=== PATIENT | male | born 1985 | race African-American/Black ===

== ENCOUNTER 2019-11-17 13:34 | Emergency (ER) | payer OTHER ==
[2019-11-17] MEDS ORDERED: NA CHLORIDE 0.9% 1,000 ML ONE (14:32)
[2019-11-17] MEDS ORDERED: ACETAMINOPHEN 500 MG TAB ONE ×2 (14:32→14:47)
--- OUTSIDE RECORDS SUMMARY | 2019-11-17 14:46 | XMS REPORT | Continuity of Care Document ---
:1985 Author Organization [facility] t Address [address] [place] [address] Care Team Providers Name Role Phone Unavailable Unavailable Unavailable Payers Payer Name Policy Type Policy Number Effective Date Expiration Date S ource Problems This patient has no known problems. Allergies, Adverse Reactions, Alerts Allergy Allergy Status Severity Reaction(s) Onset Inactive Treating Comm ents Source Name Type Date Date Clinician david CAIN Active [facility] ycin 10-19 [place] 00:00: d [facility] Medications This patient has no known medications. Procedures This patient has no known procedures. Results Test Description Test Time Test Comments Results Result Comments Source BASIC METABOLIC PANEL 2018-10-19 20:25:00 Test Item Value Reference Range Interpretation Comme nts SODIUM (test code = NA) 135 mmol/l 134.0-147.0 N POTASSIUM (test code = K) 3.7 mmol/L 3.6-5.2 N CHLORIDE (test code = CL) 100 mmol/l 98.0-107.0 N CARBON DIOXIDE (test code = CO2) 26.6 mmol/l 21.0-33.0 N ANION GAP (test code = GAP) 12.1 0-20 N GLUCOSE (test code = GLU) 89 mg/dl 70.0-110.0 N BLOOD UREA NITROGEN (test code = BUN) 11 mg/dl 7.0-18.0 N CREATININE (test code = CREAT) 1.05 mg/dL 0.60-1.30 N GFR NON BLACK (test code = GFRNONBLACK) 87 mL/min 105-110 L GFR BLACK (test code = GFRBLACK) 105 mL/min 127-133 L CALCIUM (test code = CA) 9.0 mg/dl 8.0-10.5 N THYROID STIMULATING [id number] 20:25:00 Test Item Value Reference Range Interpretation Comments THYROID STIMULATING 0.82 IU/ML 0.47-5.01 N Result i s in HORMONE (test code = Interna tional TSH) Units/millilite r B-TYPE NATRIURETIC [id number] 20:25:00 Test Item Value Reference Range Interpretation Comments B-TYPE NATRIURETIC PEPTIDE (test <5.0 PG/ML 5-100 L code = BNP) [id number] 20:25:00 Test Item Value Reference Range Interpretation Comments TROPONIN-I (test <0.02 NG/ML 0.00-0.06 N REFERENCE R RASHMI code = TROPI) TROPONIN I HEA LTHY INDIVIDUALS: < 0.06 ng/mL R/O ISCHE ISAURO: 0.07 - 0.60 ng/ mL CUT-OFF RANGE F OR AMI: 0.60 - 1.5 ng/m L BASIC METABOLIC [id number] 20:21:00 Test Item Value Reference Range Interpretation Comments SODIUM (test code = NA) 135 mmol/l 134.0-147.0 N POTASSIUM (test code = K) 3.7 mmol/L 3.6-5.2 N CHLORIDE (test code = CL) 100 mmol/l 98.0-107.0 N CARBON DIOXIDE (test code = CO2) 26.6 mmol/l 21.0-33.0 N ANION GAP (test code = GAP) 12.1 0-20 N GLUCOSE (test code = GLU) mg/dl 70.0-110.0 BLOOD UREA NITROGEN (test code = mg/dl 7.0-18.0 BUN) CREATININE (test code = CREAT) mg/dL 0.60-1.30 GFR NON BLACK (test code = mL/min 105-110 GFRNONBLACK) GFR BLACK (test code = GFRBLACK) mL/min 127-133 CALCIUM (test code = CA) mg/dl 8.0-10.5 THYROID STIMULATING [id number] 20:21:00 Test Item Value Reference Range Interpretation Comments THYROID STIMULATING HORMONE (test code IU/ML 0.47-5.01 = TSH) B-TYPE NATRIURETIC [id number] 20:21:00 Test Item Value Reference Range Interpretation Comments B-TYPE NATRIURETIC PEPTIDE (test <5.0 PG/ML 5-100 L code = BNP) [id number] 20:21:00 Test Item Value Reference Range Interpretation Comments TROPONIN-I (test code = TROPI) NG/ML 0.00-0.06 BASIC METABOLIC [id number] 20:07:00 Test Item Value Reference Range Interpretation Comments SODIUM (test code = NA) 135 mmol/l 134.0-147.0 N POTASSIUM (test code = K) 3.7 mmol/L 3.6-5.2 N CHLORIDE (test code = CL) 100 mmol/l 98.0-107.0 N CARBON DIOXIDE (test code = CO2) 26.6 mmol/l 21.0-33.0 N ANION GAP (test code = GAP) 12.1 0-20 N GLUCOSE (test code = GLU) mg/dl 70.0-110.0 BLOOD UREA NITROGEN (test code = mg/dl 7.0-18.0 BUN) CREATININE (test code = CREAT) mg/dL 0.60-1.30 GFR NON BLACK (test code = mL/min 105-110 GFRNONBLACK) GFR BLACK (test code = GFRBLACK) mL/min 127-133 CALCIUM (test code = CA) mg/dl 8.0-10.5 THYROID STIMULATING [id number] 20:07:00 Test Item Value Reference Range Interpretation Comments THYROID STIMULATING HORMONE (test code IU/ML 0.47-5.01 = TSH) B-TYPE NATRIURETIC [id number] 20:07:00 Test Item Value Reference Range Interpretation Comments B-TYPE NATRIURETIC PEPTIDE (test code PG/ML 5-100 = BNP) [id number] 20:07:00 Test Item Value Reference Range Interpretation Comments TROPONIN-I (test code = TROPI) NG/ML 0.00-0.06 PROTHROMBIN [id number] 20:07:00 Test Item Value Reference Range Interpretation Comments PROTHROMBIN TIME 11.3 SECONDS 9.9-12.8 N PATIENT (test code = PTP) INTERNATIONAL NORMAL 1.0 0.89-1.14 N THE INR IS TO BE USED RATIO (test code = ONLY FOR MONITORING INR) ORAL ANTICOAGULANTTH ERAPY. THE FOLLOWING A RE SUGGESTED RANGE S FROM [facility] LEGE OF CHEST PHYSICIANS:ANGELLA CATION INR VALUEPROPHYLAXI S OF VENOUS THROMBOS IS (ORTHOPEDIC RUMA BASIM) 2.0 - 3.0PROP HYLAXIS OF VENOUS THROM BOSIS (OTHER THAN HIG H-RISK SURGERY) 2.0 - 3.0TRE ATMENT OF DEEP VEIN THROMBOSIS OR PULMONARY EMBOL ISM 2.0 - 3.0PREV ENTION OF SYSTEMIC EMB OLISM TISSUE HEART VA LVES 2.0 - 3.0 AC [place] MYOCARDIAL INFA RCTION (TO PREVENT SYSTEMIC EMBOLI SM) 2.0 - 3.0 ACUTE MYOCARDIA L INFARCTION (TO PREVENT RECURRE NT INFARCT) 2.5 - 3.0 VALV ULAR HEART DISEASE 2.0 - 3.0 ATRIAL FIBRILATION 2.0 - 3.0BILEAFLET MECHANICAL VALV E IN AORTIC POSITION 2.0 - 3.0MECHAN ICAL PROSTHETIC VALV ES (HIGH RISK) 2.5 - 3.5PRESEN CE OF LUPUS ANTICOAGU LANT OR ANTIPHOSPHOLIP ID ANTIBODIES 2.5 - 3 .5 THROMBOPLASTIN TIME [id number] 20:07:00 Test Item Value Reference Range Interpretation Comments THROMBOPLASTIN TIME 29.50 SECONDS 25.86-36.07 N [place] d [facility] PARTIAL (test code = Therape utic Range - PTT) APTT of 55.8-85 .4 secondscorrelat es with plasma heparin concentration o f 0.2-0.4 u/mL Ne w range effective - D-[id number] 20:07:00 Test Item Value Reference Range Interpretation Comments D-DIMER/FSP (test <200 ng/mL 200.0-230.0 L Pe r heliarc welder code = DDIMER) recommendatio n, the CUT OFFfor the Diagnosis of PE or DVT with a 100% SEN SITIVITY &100% PREDICTIV E VALUE is suggested to be 230 ng/mL D-DIMERUNIT(DDU ). D-DIMER RESULTS MAY BE AFFECTED BY:1. HEMOGLOBI N > 100 mg/dL2. BILIRUB IN > 10 mg/dL3. TRIGLYC ERIDES > 1500 mg/dL4. Th e presence of RHEUMATIOID FACTOR may produce an overestimation of the test result. CBC W/AUTO [id number] 20:01:00 Test Item Value Reference Range Interpretation Comments WHITE BLOOD CELL (test code = 9.0 K/mm3 4.5-11.0 N WBC) RED BLOOD CELL (test code = 4.60 M/mm3 4.40-5.90 N RBC) HEMOGLOBIN (test code = HGB) 13.7 gm/dL 13.0-17.0 N HEMATOCRIT (test code = HCT) 40.2 % 36.0-48.0 N MEAN CELL VOLUME (test code = 87.4 UM3 80.0-94.0 N MCV) MEAN CELL HGB (test code = MCH) 29.8 UUG 25.5-32.5 N MEAN CELL HGB CONCETRATION 34.1 gm/dL 29.0-35.5 N (test code = MCHC) RED CELL DISTRIBUTION WIDTH 12.1 % 11.5-15.0 N (test code = RDW) RED CELL DISTRIBUTION WIDTH SD 39.1 fL 34.8-50.2 N (test code = RDW-SD) PLATELET COUNT (test code = 232 K/mm3 150-400 N PLT) MEAN PLATELET VOLUME (test code 9.4 fl 7.4-10.4 N = MPV) NEUTROPHIL % (test code = NT%) 80.6 % 49.0-76.0 H IMMATURE GRANULOCYTE % (test 0.2 % 0.0-0.4 N code = IG%) LYMPHOCYTE % (test code = LY%) 11.6 % 23.0-38.0 L MONOCYTE % (test code = MO%) 7.1 % 1.0-10.0 N EOSINOPHIL % (test code = EO%) 0.2 % 1.0-5.0 L BASOPHIL % (test code = BA%) 0.3 % 0.0-1.0 N NEUTROPHIL # (test code = NT#) 7.3 K/mm3 2.4-6.3 H IMMATURE GRANULOCYTE # (test 0.02 x10 3/uL 0.00-0.07 N code = IG#) LYMPHOCYTE # (test code = LY#) 1.1 K/mm3 1.2-4.0 L MONOCYTE # (test code = MO#) 0.6 K/mm3 0.0-0.6 N EOSINOPHIL # (test code = EO#) 0.0 K/MM3 0.0-0.7 N BASOPHIL # (test code = BA#) 0.0 K/mm3 0.0-0.2 N - XR CHEST 2 [id number] 19:42:00 FAX: Orlando Butler MD [place]: St: PRE Name: NAHID WHITAKER [facility] : 1985 Age/S: 33/M [address] [facility] [employer] [facility] [place] Unit#: [id number] Loc: [address] Phys: [place] [id number] Acct: [id number] Dis Date: Status: PRE ER PHONE #: [phone] Exam Date: 10/19/20181934 FAX #: [phone] Reason: SOB EXAMS: CPT CODE: [id number] XR CHEST 2 V [id number] Chest x- ray 2 views History: SOB Comparison: None at this time Location: R16 Number of images: 2 The heart is within normal limits in size. Pulmonary vasculature is unremarkable. The visualized lung dos santos appear to be free of disease. The bones appear unremarkable. IMPRESSION: There is no radiographic evidence of acute cardiopulmonary disease. at 1942 Reported and signed by: Mo King M.D. CC: Orlando Butler MD Technologist: GERALD CAPELLAN Trnscrd Date/Time/By: 10/19/2018 (1941) : By: LoisPMT PAGE 1 Signed Report FAX: Orlando Butler MD [place]: St: PRE Name: NAHID WHITAKER [facility] [place] : 1985 Age/S: 33/M [address] [employer]acquired by [employer] in 2014) Unit #: [id number] Loc: [address] [place] [address] Phys: [place] [address] Acct: [id number] Dis Date: Status: PRE ERPHONE #: [phone] Exam Date: 10/19/20181934 FAX #: [phone] Reason: SOB EXAMS: CPT CODE: [id number] XR CHEST 2 V [id number]<Continued> Orig Print D/T: S: 10/19/2018 (1944) PAGE 2 Signed Report
[2019-11-17 14:51] LABS: Absolute Lymphocytes (CBC) 0.4 K/uL (0.7-4.9); Basophils % 0.2 % (0-1.3); Hematocrit 40.7 % (39.6-49.0); Lymphocytes % 3.1 % (15.3-44.8); MPV 8.2 fL (7.6-11.3); RBC Red Blood Cell Count 4.55 M/uL (4.33-5.43)
[2019-11-17 15:10] LABS: Albumin 3.8 g/dL (3.4-5.0); Bilirubin Direct 0.2 mg/dL (0-0.2); Potassium 3.8 mmol/L (3.5-5.1); Protein, Total 7.2 g/dL (6.4-8.2)
[2019-11-17 15:18] LABS: Platelet Estimate ADEQ; Urine White Blood Cell Casts OK
[2019-11-17 15:19] LABS: Blood Morphology Comment NOT SEEN (NOT SEEN)
--- NOTE | 2019-11-17 17:15 | RAD REPORT ---
EXAM DESCRIPTION: Perez Single View11/17/2019 2:51 pm CLINICAL HISTORY: fever COMPARISON: none FINDINGS: The lungs appear clear of acute infiltrate. The heart is normal size IMPRESSION: No acute abnormalities displayed
--- NOTE | 2019-11-17 17:50 | EDPHYS ---
Physician Documentation [facility] Name: Neel Kinsey Age: 34 yrs Sex: Male : 1985 Arrival Date: 11/17/2019 Time: 13:45 Bed 5 Private MD: ED Physician Rudy Verma HPI: 11/16 14:50 This 34 yrs old Black Male presents to ER via Ambulatory with complaints of Other, Flu rn Symptoms. 14:50 The patient reports fever, that was measured at 103.2 degrees Fahrenheit. Onset: The rn symptoms/episode began/occurred at an unknown time. Modifying factors: there are no obvious modifying factors. Severity of symptoms: At their worst the symptoms were moderate in the emergency department the symptoms are unchanged. The patient has not experienced similar symptoms in the past. Reports fever that he noticed today, able to work yesterday, reports fatigue/malaise, muscle aches, diarrhea. No known sick contacts. + intermittent abd cramps, no current abd pain. No blood in stool. No vomiting. No cough/sob. . Historical: - Allergies: 13:57 No Known Allergies; ca1 - Home Meds: 13:57 None [Active]; ca1 - PMHx: 13:57 None; ca1 - PSHx: 13:57 None; ca1 - Immunization history:: Adult Immunizations up to date. - Social history:: Smoking status: Patient reports the use of cigarette tobacco products, smokes one pack cigarettes per day. - Family history:: not pertinent. - Hospitalizations: : No recent hospitalization is reported. ROS: 14:50 Constitutional: + fever and chills Eyes: Negative for injury, pain, redness, and office rn, ENT: Negative for injury, pain, and discharge, Neck: Negative for injury, pain, and swelling, Cardiovascular: Negative for chest pain, palpitations, and edema, Respiratory: Negative for shortness of breath, cough, wheezing, and pleuritic chest pain, Abdomen/GI: + abd pain/diarrhea, neg for vomiting Back: Negative for injury and pain, : Negative for injury, bleeding, discharge, and swelling, MS/Extremity: Negative for injury and deformity, Skin: Negative for injury, rash, and discoloration, Neuro: Negative for headache, numbness, tingling, and seizure. Exam: 14:50 Constitutional: This is a well developed, well nourished patient who is awake, alert, rn and in no acute distress. Seems sleepy. Head/Face: Normocephalic, atraumatic. Eyes: Pupils equal round and reactive to light, extra-ocular motions intact. Lids and lashes normal. Conjunctiva and sclera are non-icteric and not injected. Cornea within normal limits. Periorbital areas with no swelling, redness, or edema. ENT: dry MM Neck: Trachea midline, no thyromegaly or masses palpated, and no cervical lymphadenopathy. Supple, full range of motion without nuchal rigidity, or vertebral point tenderness. No Meningismus. Cardiovascular: Tachycardic, regular Respiratory: Speaking full sentences, no respiratory distress Abdomen/GI: soft, non-tender Skin: Warm, dry MS/ Extremity: Pulses equal, no cyanosis. Neurovascular intact. Full, normal range of motion. Equal circumference. Neuro: Awake, somnolent, GCS 15, oriented to person, place, time, and situation. Cranial nerves II-XII grossly intact. Motor strength 5/5 in all extremities. Sensory grossly intact. Vital Signs: 13:52 BP 106 / 81; Pulse 129; Resp 20; Temp 103.2(O); Pulse Ox 100% on R/A; Weight 68.04 kg ca1 (R); Height 5 ft. 11 in. (180.34 cm) (R); Pain 9/10; 15:43 BP 119 / 70; Pulse 95; Resp 19; Temp 99.5(TE); Pulse Ox 95% on R/A; mh5 17:00 BP 116 / 72; Pulse 83; Resp 16; Temp 99.2(TE); Pulse Ox 99% on R/A; Pain 5/10; hb 17:45 BP 114 / 70; Pulse 80; Resp 16; Temp 99.3; Pulse Ox 100% ; Pain 7/10; hb 13:52 Body Mass Index 20.92 (68.04 kg, 180.34 cm) ca1 MDM: 14:02 Patient medically screened. rn 15:41 ED course: Pt refuses CT scan, understands reason and risks, does not want it done.. rn 17:48 Differential diagnosis: viral Infection, bacterial infection, gastroenteritis, rn appendicitis, colitis, diverticulitis, COVID-19. Data reviewed: vital signs, nurses notes, lab test result(s), radiologic studies, plain films, and as a result, I will discharge patient. Counseling: I had a detailed discussion with the patient and/or guardian regarding: the historical points, exam findings, and any diagnostic results supporting the discharge/admit diagnosis, lab results, radiology results, the need for outpatient follow up, to return to the emergency department if symptoms worsen or persist or if there are any questions or concerns that arise at home. Refusal of service: The patient/guardian displays adequate decision making capability and despite a detailed discussion of alternatives, benefits, risks, and consequences refuses: CT Scan. Special discussion: I discussed with the patient/guardian in detail that at this point there is no indication for admission to the hospital. It is understood, however, that if the symptoms persist or worsen the patient needs to return immediately for re-evaluation. ED course: Pt feels better, perked up after fluids, still does not want CT scan and understands implications of incomplete w/u. Return precautions given, COVID-19 swab sent. . 11/16 14:08 Order name: Flu; Complete Time: 15:40 11/16 14:08 Order name: Strep; Complete Time: 15:40 11/16 14:08 Order name: COVID-19 11/16 14:08 Order name: CBC with Diff; Complete Time: 15:39 11/16 14:08 Order name: Basic Metabolic Panel; Complete Time: 15:16 11/16 14:08 Order name: Hepatic Function; Complete Time: 15:16 11/16 14:08 Order name: CXR XRAY; Complete Time: 17:39 11/16 14:08 Order name: Lipase; Complete Time: 15:16 11/16 14:08 Order name: Procalcitonin; Complete Time: 15:40 11/16 14:09 Order name: [place] Screen Profile; Complete Time: 15:40 11/16 15:19 Order name: CBC Smear Scan; Complete Time: 15:40 EDSD 11/16 15:29 Order name: Throat Culture EDSD 11/16 14:08 Order name: Droplet/Contact Precautions; Complete Time: 14:45 11/16 14:08 Order name: Labs collected and sent; Complete Time: 14:45 11/16 14:08 Order name: O2 Per Protocol; Complete Time: 14:45 rn 11/16 14:08 Order name: IV Start; Complete Time: 14:45 rn Administered Medications: 14:15 Drug: Tylenol 1000 mg Route: PO; hb 15:15 Follow up: Response: No adverse reaction; Temperature is decreased hb 14:22 Drug: NS 0.9% 1000 ml Route: IV; Rate: 1000 ml; Site: right antecubital; hb 15:15 Follow up: Response: No adverse reaction; IV Status: Completed infusion; IV Intake: hb 1000ml 17:59 Drug: traMADol 50 mg Route: PO; hb 17:59 Follow up: Response: Medication administered at discharge. hb Disposition: 11/17/19 17:50 Discharged to Home. Impression: Fever, unspecified. - Condition is Stable. - Discharge Instructions: Abdominal Pain, Adult, Fever, Adult. - Medication Reconciliation Form, Thank You Letter, Antibiotic Education, Prescription Opioid Use form. - Follow up: Private Physician; When: As needed; Reason: Recheck today's complaints, Re-evaluation by your physician. - Problem is new. - Symptoms have improved. Signatures: Dispatcher [employer] EDMS Rudy Verma MD MD rn Baxter, Heather, RN RN Ac, Chata RN RN [facility] Corrections: (The following items were deleted from the chart) 17:09 15:17 Abdomen Pelvis W Con+CT.RAD.BRZ ordered. [facility] EDSD 18:06 17:50 11/17/2019 17:50 Discharged to Home. Impression: Fever, unspecified. Condition is hb Stable. Forms are Medication Reconciliation Form, Thank You Letter, Antibiotic Education, Prescription Opioid Use. Follow up: Private Physician; When: As needed; Reason: Recheck today's complaints, Re-evaluation by your physician. Problem is new. Symptoms have improved. rn
--- NOTE | 2019-11-17 17:50 | ER ---
Nurse's Notes [facility] Name: Neel Kinsey Age: 34 yrs Sex: Male : 1985 Arrival Date: 11/17/2019 Time: 13:45 Bed 5 Private MD: Diagnosis: Fever, unspecified Presentation: 11/16 13:52 Chief complaint: Patient states: Chills and feeling since 0800 today. Reports abdominal ca1 pain. Denies N/V/diarrhea. Denies cough. Reports low back pain and body aches. Denies Urinary symptoms. Pt took Motrin at 1000. Coronavirus screen: Surgical mask placed on patient. Patient moved to private room, placed in contact and droplet isolation with eye protection until further assessment. Patient denies a cough. Patient denies shortness of breath or difficulty breathing. Patient reports a measured and/or subjective temperature greater than 100.4F. Patient denies travel on a cruise ship or to a country [facility] currently lists as an affected area. Ebola Screen: Patient negative for fever greater than or equal to 101.5 degrees Fahrenheit, and additional compatible Ebola Virus Disease symptoms Patient denies exposure to infectious person. Patient denies travel to an Ebola-affected area in the 21 days before illness onset. No symptoms or risks identified at this time. Initial Sepsis Screen: Does the patient meet any 2 criteria? Yes Does the patient have a suspected source of infection? Yes: Acute abdominal pain. Risk Assessment: Do you want to hurt yourself or someone else? Patient reports no desire to harm self or others. Onset of symptoms was November 17, 2019 at 08:00. 13:52 Method Of Arrival: Ambulatory ca1 13:52 Acuity: COSME 2 ca1 Historical: - Allergies: 13:57 No Known Allergies; ca1 - Home Meds: 13:57 None [Active]; ca1 - PMHx: 13:57 None; ca1 - PSHx: 13:57 None; ca1 - Immunization history:: Adult Immunizations up to date. - Social history:: Smoking status: Patient reports the use of cigarette tobacco products, smokes one pack cigarettes per day. - Family history:: not pertinent. - Hospitalizations: : No recent hospitalization is reported. Screenin:25 Abuse screen: Denies threats or abuse. Nutritional screening: No deficits noted. hb Tuberculosis screening: No symptoms or risk factors identified. Fall Risk None identified. Assessment: 14:25 General: Appears in no apparent distress. ill, Behavior is cooperative, anxious. Pain: hb Pain currently is 9 out of 10 on a pain scale. Neuro: Level of Consciousness is awake, alert, obeys commands, Oriented to person, place, time, situation. Cardiovascular: Capillary refill < 3 seconds Patient's skin is warm and dry. Respiratory: Airway is patent Respiratory effort is even, unlabored, Respiratory pattern is regular, symmetrical. GI: Reports diarrhea. : No signs and/or symptoms were reported regarding the genitourinary system. EENT: No signs and/or symptoms were reported regarding the EENT system. Derm: Skin is pink, warm \T\ dry. Musculoskeletal: Reports body aches. 15:15 Reassessment: Patient appears in no apparent distress at this time. Patient and/or hb family updated on plan of care and expected duration. Pain level reassessed. Patient is alert, oriented x 3, equal unlabored respirations, skin warm/dry/pink. 16:00 Reassessment: Patient appears in no apparent distress at this time. hb 17:14 Reassessment: Patient appears in no apparent distress at this time. Patient and/or hb family updated on plan of care and expected duration. Pain level reassessed. Patient is alert, oriented x 3, equal unlabored respirations, skin warm/dry/pink. Vital Signs: 13:52 BP 106 / 81; Pulse 129; Resp 20; Temp 103.2(O); Pulse Ox 100% on R/A; Weight 68.04 kg ca1 (R); Height 5 ft. 11 in. (180.34 cm) (R); Pain 9/10; 15:43 BP 119 / 70; Pulse 95; Resp 19; Temp 99.5(TE); Pulse Ox 95% on R/A; mh5 17:00 BP 116 / 72; Pulse 83; Resp 16; Temp 99.2(TE); Pulse Ox 99% on R/A; Pain 5/10; hb 17:45 BP 114 / 70; Pulse 80; Resp 16; Temp 99.3; Pulse Ox 100% ; Pain 7/10; hb 13:52 Body Mass Index 20.92 (68.04 kg, 180.34 cm) ca1 ED Course: 13:45 Patient arrived in ED. fj1 13:56 Triage completed. ca1 13:57 Arm band placed on right wrist. ca1 14:02 Rudy Verma MD is Attending Physician. rn 14:25 Patient has correct armband on for positive identification. Bed in low position. Call light in reach. Side rails up X 1. 14:28 Inserted saline lock: 20 gauge in right forearm, using aseptic technique. Blood hb collected. 14:48 Jamia White RN is Primary Nurse. hb 14:51 CXR XRAY In Process Unspecified. EDMS 15:49 Radiology exam delayed due to pt refused CT scan x 2 different techsBayron notified. vm2 Administered Medications: 14:15 Drug: Tylenol 1000 mg Route: PO; hb 15:15 Follow up: Response: No adverse reaction; Temperature is decreased hb 14:22 Drug: NS 0.9% 1000 ml Route: IV; Rate: 1000 ml; Site: right antecubital; hb 15:15 Follow up: Response: No adverse reaction; IV Status: Completed infusion; IV Intake: hb 1000ml 17:59 Drug: traMADol 50 mg Route: PO; hb 17:59 Follow up: Response: Medication administered at discharge. hb Intake: 15:15 IV: 1000ml; Total: 1000ml. hb Outcome: 17:50 Discharge ordered by . rn 18:06 Patient left the ED. hb Addendum: 11/20/2019 12:04 Addendum: Other pt notified of negative COVID-19 swab results. Pt advised to remain in d m5 isolation until fever free without medication for 3 days and to return to the Ed for worsening symptoms. Signatures: Dispatcher [employer] EDNY Monica Corado RN RN Rudy Buchanan MD MD rn Baxter, Heather, RN RN hb Martinez, Maria [facility] Erika Crockett [facility] Chata Raines RN RN ca1 James, Frank fj Corrections: (The following items were deleted from the chart) 11/16 13:57 13:52 Chief complaint: Patient states: Chills and feeling since 0800 today. Reports ca1 abdominal pain. Denies N/V/diarrhea. Denies cough. Reports low back pain and body aches. Denies Urinary symptoms ca1
[2019-11-17] MEDS ORDERED: TRAMADOL HCL 50 MG TAB ONE (18:02)
[2019-11-18 01:01] VITALS: BP 114/70; TEMP 99.3; O2SAT 100
== END 2019-11-17 18:06 | disposition home or self-care (01) ==
LOC: ER 13:34
DX: R50.9 Fever, unspecified (principal); Z20.828 Contact with and (suspected) exposure to other viral communicable diseases; F17.210 Nicotine dependence, cigarettes, uncomplicated
CPT/HCPCS: 87070; 85025; 80048; 36415; 86308; 80076; 87081; 83690; 84145; 87804 ×2; 71045; 96360; 99284; U0001; J7030